=== PATIENT | male | born 1955 | race Caucasian/White ===

== ENCOUNTER 2021-04-30 09:35 | Emergency (ER) | payer BC, OTHER ==
[2021-04-30 10:01] VITALS: BP 151/92; PULSE 77; TEMP 98.1; BMI 33.0
[2021-04-30] MEDS ORDERED: ACETAMINOPHEN 325 MG TABLET (FP) PO ONE (10:57)
[2021-04-30 11:42] LABS: EPI CELLS 3 /uL (0-25.1); HYALINE CASTS 0 /uL (0-3.1); URINE APPEARANCE CLEAR; URINE BACTERIA 3 /uL (0-1359); URINE BILIRUBIN NEGATIVE (NEGATIVE); URINE COLOR YELLOW; URINE GLUCOSE (UA) TRACE (NEGATIVE); URINE KETONE NEGATIVE (NEGATIVE); URINE LEUK ESTERASE NEGATIVE (NEGATIVE); URINE NITRITE NEGATIVE (NEGATIVE); URINE PROTEIN 3+ (NEGATIVE); URINE RBC 3 /uL (0-23.9); URINE UROBILINOGEN 0.2 mg/dL (0.2-1.0); URINE WBC 1 /uL (0-25.8)
== END 2021-04-30 13:00 | disposition home or self-care (01) ==
LOC: JER 09:35
DX: N50.3 Cyst of epididymis (principal)
CPT/HCPCS: 76870-TC; 81003; 87086; 99284-25

== ENCOUNTER 2023-06-06 10:13 | Inpatient (IN) | payer BC ==
[2023-06-06 11:09] LABS: HEMATOCRIT 40.4 % (35.4-49); HEMOGLOBIN 13.2 GM/dL (11.7-16.9); MCH 30.4 pg (25.7-33.7); MCHC 32.6 g/dl (32.0-35.9); MEAN CELL VOLUME 93.1 fl (80-96); MEAN PLT VOLUME 7.2 fl (7.5-11.1); PLATELET COUNT 138 10^3/uL (134-434); RBC 4.33 M/mm3 (4.00-5.60); RDW 13.7 % (11.9-15.9); WHITE BLOOD COUNT 8.6 K/mm3 (4.0-10.0)
[2023-06-06] MEDS ORDERED: ASPIRIN 325 MG TABLET ONE (11:19)
[2023-06-06] MEDS: ASPIRIN 325 MG TABLET PO ONE (11:26)
[2023-06-06 11:34] LABS: ALBUMIN 3.5 g/dl (3.4-5.0)
[2023-06-06 11:35] LABS: BLOOD UREA NITROGEN 22.6 mg/dL (7-18); MAGNESIUM 1.8 mg/dL (1.8-2.4)
[2023-06-06 11:37] LABS: CREATININE 1.7 mg/dL (0.55-1.3)
[2023-06-06 11:39] LABS: BILIRUBIN,TOTAL 0.5 mg/dL (0.2-1); TOT PROT 7.2 g/dl (6.4-8.2)
[2023-06-06 11:59] LABS: INR 1.01 (0.83-1.09); PROTHROMBIN TIME (PATIENT) 11.4 SEC (9.7-13.0)
[2023-06-06 12:02] LABS: ACTIVATED PTT 27.3 SECONDS (25.2-36.5)
[2023-06-06] MEDS ORDERED: MAG HYDROX/AL HYDROX/SIMETH 30 ML UNIT-DOSE CUP ONE (13:36)
[2023-06-06] MEDS ORDERED: FAMOTIDINE 20 MG/50 ML IVPB 20 MG/50 ML MG IVPB ONE (13:36)
[2023-06-06] MEDS: MAG HYDROX/AL HYDROX/SIMETH 30 ML UNIT-DOSE CUP PO ONE (13:44)
[2023-06-06] MEDS: FAMOTIDINE 20 MG/50 ML IVPB 20 MG/50 ML MG IVPB ONE (13:44)
[2023-06-06] MEDS: ROSUVASTATIN CA 20 MG TABLET PO SCH (22:19)
[2023-06-06] MEDS: MYCOPHENOLATE MOFETIL 500 MG TABLET PO SCH (22:20)
[2023-06-07] MEDS: glipiZIDE-XL 10 MG TAB.ER.24 (FP) PO SCH (06:40)
[2023-06-07 08:15] LABS: BASO % 0.4 % (0-2.0); HEMATOCRIT 40.7 % (35.4-49); HEMOGLOBIN 13.6 GM/dL (11.7-16.9); LYMPH % 5.1 % (8-40); MCH 30.8 pg (25.7-33.7); MCHC 33.4 g/dl (32.0-35.9); MEAN CELL VOLUME 92.1 fl (80-96); MEAN PLT VOLUME 7.6 fl (7.5-11.1); MONO % 5.4 % (3.8-10.2); NEUT % 89.1 % (42.8-82.8); PLATELET COUNT 124 10^3/uL (134-434); RBC 4.42 M/mm3 (4.00-5.60); WHITE BLOOD COUNT 10.2 K/mm3 (4.0-10.0)
[2023-06-07 08:41] LABS: POTASSIUM 4.2 mmol/L (3.5-5.1)
[2023-06-07 08:57] LABS: CALCIUM 8.6 mg/dL (8.5-10.1)
[2023-06-07 08:58] LABS: ALBUMIN 3.1 g/dl (3.4-5.0); BLOOD UREA NITROGEN 26.6 mg/dL (7-18)
[2023-06-07 09:01] LABS: CREATININE 1.9 mg/dL (0.55-1.3)
[2023-06-07 09:02] LABS: BILIRUBIN,TOTAL 0.6 mg/dL (0.2-1); TOT PROT 6.8 g/dl (6.4-8.2)
[2023-06-07] MEDS: ASPIRIN COATED 81 MG TABLET.EC PO SCH (09:41)
[2023-06-07] MEDS: ENOXAPARIN NA (PORCINE) 40 MG/0.4 ML DISP.SYRIN SQ SCH (09:41)
[2023-06-07] MEDS: LISINOPRIL 20 MG TABLET PO SCH (09:42)
[2023-06-07] MEDS: PANTOPRAZOLE 40 MG TABLET PO SCH (09:42)
[2023-06-07] MEDS: ACETAMINOPHEN 325 MG TABLET (FP) PO PRN (11:53)
[2023-06-07] MEDS: INSULIN ASPART SLIDING SCALE (NOVOLOG) 1 VIAL SQ SCH (16:54)
[2023-06-07] MEDS: SODIUM CHLORIDE 1,000 ML IV SCH (17:02)
[2023-06-07 18:08] LABS: EPI CELLS 18 /uL (0-25.1); HYALINE CASTS 23 /uL (0-3.1); PH,URINE 5.5 (5.0-8.0); URINE APPEARANCE CLOUDY; URINE BACTERIA >9,000 /uL (0-1359); URINE BILIRUBIN NEGATIVE (NEGATIVE); URINE COLOR YELLOW; URINE GLUCOSE (UA) 3+ (NEGATIVE); URINE KETONE NEGATIVE (NEGATIVE); URINE LEUK ESTERASE NEGATIVE (NEGATIVE); URINE NITRITE NEGATIVE (NEGATIVE); URINE PROTEIN 4+ (NEGATIVE); URINE UROBILINOGEN 0.2 mg/dL (0.2-1.0)
[2023-06-07 19:09] LABS: URINE RBC 26.5 /uL (0-23.9)
[2023-06-07] MEDS: ATORVASTATIN CA 20 MG TABLET (FP) PO SCH (21:19)
[2023-06-08 07:17] LABS: POTASSIUM 4.5 mmol/L (3.5-5.1)
[2023-06-08 07:25] LABS: ALBUMIN 2.8 g/dl (3.4-5.0); BLOOD UREA NITROGEN 31.2 mg/dL (7-18)
[2023-06-08 07:30] LABS: BILIRUBIN,TOTAL 0.7 mg/dL (0.2-1); TOT PROT 6.6 g/dl (6.4-8.2)
[2023-06-08 07:32] LABS: BASO % 0.5 % (0-2.0); HEMATOCRIT 43.1 % (35.4-49); LYMPH % 8.1 % (8-40); MCH 30.4 pg (25.7-33.7); MCHC 32.4 g/dl (32.0-35.9); MEAN CELL VOLUME 93.8 fl (80-96); MONO % 6.4 % (3.8-10.2); PLATELET COUNT 94 10^3/uL (134-434); RBC 4.59 M/mm3 (4.00-5.60); RDW 13.7 % (11.9-15.9); WHITE BLOOD COUNT 7.5 K/mm3 (4.0-10.0)
[2023-06-08] MEDS: amLODIPine BESYLATE 10 MG TABLET (FP) PO SCH (09:42)
[2023-06-08] MEDS: CEFTRIAXONE 1 GM in DEXTROSE 5%-WATER - 50 ML IVPB SCH (13:52)
[2023-06-08] MEDS ORDERED: AMOX TR/POT CLAV 875MG/125MG TABLETS (FP) PO SCH (17:30)
[2023-06-08] MEDS ORDERED: INSULIN (NOVOLOG) ASPART 100 UNITS/ML 10ML VIAL ONE (21:43)
[2023-06-09] MEDS: MEROPENEM 1 GM in DEXTROSE 5%-WATER 100 ML IVPB SCH (13:58)
[2023-06-09] MEDS ORDERED: INSULIN (NOVOLOG) ASPART 100 UNITS/ML 10ML VIAL ONE (21:48)
[2023-06-10 07:26] LABS: BASO % 0.7 % (0-2.0); HEMATOCRIT 37.9 % (35.4-49); HEMOGLOBIN 12.5 GM/dL (11.7-16.9); LYMPH % 16.4 % (8-40); MCH 30.4 pg (25.7-33.7); MEAN CELL VOLUME 92.2 fl (80-96); MEAN PLT VOLUME 7.9 fl (7.5-11.1); MONO % 13.1 % (3.8-10.2); NEUT % 68.8 % (42.8-82.8); PLATELET COUNT 101 10^3/uL (134-434); RBC 4.11 M/mm3 (4.00-5.60); RDW 13.7 % (11.9-15.9); WHITE BLOOD COUNT 4.5 K/mm3 (4.0-10.0)
[2023-06-10 07:36] LABS: POTASSIUM 4.2 mmol/L (3.5-5.1)
[2023-06-10 07:53] LABS: ALBUMIN 2.4 g/dl (3.4-5.0); CALCIUM 8.1 mg/dL (8.5-10.1)
[2023-06-10 07:54] LABS: BLOOD UREA NITROGEN 28.9 mg/dL (7-18)
[2023-06-10 07:56] LABS: CREATININE 1.6 mg/dL (0.55-1.3)
[2023-06-10 07:58] LABS: BILIRUBIN,TOTAL 0.5 mg/dL (0.2-1); TOT PROT 6.1 g/dl (6.4-8.2)
[2023-06-10] MEDS ORDERED: INSULIN (NOVOLOG) ASPART 100 UNITS/ML 10ML VIAL ONE (21:28)
[2023-06-11] MEDS: ERTAPENEM SODIUM 1 GM in SODIUM CHLORIDE 50 ML IVPB SCH (12:22)
[2023-06-11 15:04] VITALS: BMI 32.9
[2023-06-12 07:24] LABS: HEMATOCRIT 36.5 % (35.4-49); HEMOGLOBIN 12.1 GM/dL (11.7-16.9); MCH 30.4 pg (25.7-33.7); MCHC 33.3 g/dl (32.0-35.9); MEAN CELL VOLUME 91.1 fl (80-96); PLATELET COUNT 122 10^3/uL (134-434); RDW 13.8 % (11.9-15.9); WHITE BLOOD COUNT 5.5 K/mm3 (4.0-10.0)
[2023-06-12 07:50] LABS: POTASSIUM 4.5 mmol/L (3.5-5.1)
[2023-06-12 07:57] LABS: CALCIUM 8.2 mg/dL (8.5-10.1)
[2023-06-12 07:58] LABS: ALBUMIN 2.5 g/dl (3.4-5.0); BLOOD UREA NITROGEN 25.7 mg/dL (7-18)
[2023-06-12 08:01] LABS: CREATININE 1.4 mg/dL (0.55-1.3)
[2023-06-12 08:02] LABS: BILIRUBIN,TOTAL 0.3 mg/dL (0.2-1); TOT PROT 5.9 g/dl (6.4-8.2)
[2023-06-12 09:36] LABS: ANISOCYTOSIS 1+; MACROCYTOSIS 0
[2023-06-12 09:43] VITALS: RESP 18
[2023-06-12 15:33] VITALS: BP 134/69; PULSE 62; TEMP 98.4
== END 2023-06-12 18:20 | disposition home health service (06) | DRG 309 ==
LOC: JER 10:13 → JERBED 14:15 → J4W 19:05 → OBSVTOIN 22:03 → J4W 06-09 19:17
PROVIDERS: ADMIT Internal Medicine; ATTEND Internal Medicine
DX: I45.2 Bifascicular block (principal); N17.9 Acute kidney failure, unspecified; N39.0 Urinary tract infection, site not specified; E78.5 Hyperlipidemia, unspecified; I12.9 Hypertensive chronic kidney disease with stage 1 through stage 4 chronic kidney disease, or unspecified chronic kidney disease; E11.22 Type 2 diabetes mellitus with diabetic chronic kidney disease; N18.9 Chronic kidney disease, unspecified; E11.21 Type 2 diabetes mellitus with diabetic nephropathy; B96.20 Unspecified Escherichia coli [E. coli] as the cause of diseases classified elsewhere; I44.0 Atrioventricular block, first degree; R50.9 Fever, unspecified
CPT/HCPCS: 0241U-QW; 36415; 36569; 71045-TC-FY; 80053; 80180; 81003; 82550; 82553; 82962; 83036; 83690; 83735; 83880; 84484; 85025; 85610; 85730; 87040; 87086; 87186; 93005; 93010; 93306-TC; 99285-25; G0378; J7517

== ENCOUNTER 2023-06-13 14:30 | Day surgery (SDC) | payer BC ==
[2023-06-13] MEDS: ERTAPENEM SODIUM 1 GM in SODIUM CHLORIDE 50 ML IVPB ONE (15:38)
[2023-06-13 16:39] VITALS: BP 138/70; PULSE 80; RESP 18; TEMP 98.1
== END 2023-06-13 15:45 | disposition home or self-care (01) ==
LOC: FINFUSION 14:30 → FM/S 14:36 → FINFUSION 15:45
PROVIDERS: ATTEND Internal Medicine Infectious Disease
DX: N39.0 Urinary tract infection, site not specified (principal); Z16.12 Extended spectrum beta lactamase (ESBL) resistance
CPT/HCPCS: 96365

== ENCOUNTER 2023-06-14 13:17 | Day surgery (SDC) | payer BC ==
[2023-06-14] MEDS: ERTAPENEM SODIUM 1 GM in SODIUM CHLORIDE 50 ML IVPB SCH (13:45)
[2023-06-14 16:06] VITALS: BP 120/75; PULSE 78; RESP 18; TEMP 98.6
== END 2023-06-14 14:35 | disposition home or self-care (01) ==
LOC: FM/S 13:17 → FINFUSION 13:17
PROVIDERS: ATTEND Internal Medicine Infectious Disease
DX: N39.0 Urinary tract infection, site not specified (principal); Z16.12 Extended spectrum beta lactamase (ESBL) resistance
CPT/HCPCS: 96365

== ENCOUNTER 2023-06-15 13:37 | Day surgery (SDC) | payer BC ==
[2023-06-15] MEDS: ERTAPENEM SODIUM 1 GM in SODIUM CHLORIDE 50 ML IVPB SCH (14:06)
[2023-06-15 14:14] VITALS: TEMP 98.3
[2023-06-15 14:48] VITALS: BP 137/81; PULSE 68; RESP 17
== END 2023-06-15 14:42 | disposition home or self-care (01) ==
LOC: FINFUSION 13:37 → FM/S 13:40 → FINFUSION 14:42
PROVIDERS: ATTEND Internal Medicine Infectious Disease
DX: N39.0 Urinary tract infection, site not specified (principal); Z16.12 Extended spectrum beta lactamase (ESBL) resistance
CPT/HCPCS: 96365

== ENCOUNTER 2023-06-16 14:33 | Day surgery (SDC) | payer BC ==
[2023-06-16] MEDS: ERTAPENEM SODIUM 1 GM in SODIUM CHLORIDE 50 ML IVPB ONE (15:00)
[2023-06-16 15:24] VITALS: BP 128/70; PULSE 80; RESP 16; TEMP 98.1
== END 2023-06-16 15:38 | disposition home or self-care (01) ==
LOC: FINFUSION 14:33 → FM/S 14:36 → FINFUSION 15:38
PROVIDERS: ATTEND Internal Medicine Infectious Disease
DX: N39.0 Urinary tract infection, site not specified (principal); Z16.12 Extended spectrum beta lactamase (ESBL) resistance
CPT/HCPCS: 96365

== ENCOUNTER 2023-06-17 14:18 | Day surgery (SDC) | payer BC ==
[2023-06-17] MEDS: ERTAPENEM SODIUM 1 GM in SODIUM CHLORIDE 50 ML IVPB ONE (14:45)
[2023-06-17 15:13] VITALS: BP 125/86; PULSE 82; RESP 16; TEMP 98.1
== END 2023-06-17 15:23 | disposition home or self-care (01) ==
LOC: FINFUSION 14:18 → FM/S 14:19 → FINFUSION 15:23
PROVIDERS: ATTEND Internal Medicine Infectious Disease
DX: N39.0 Urinary tract infection, site not specified (principal); Z16.12 Extended spectrum beta lactamase (ESBL) resistance
CPT/HCPCS: 96365

== ENCOUNTER 2023-06-18 14:47 | Day surgery (SDC) | payer BC ==
[2023-06-18] MEDS: ERTAPENEM SODIUM 1 GM in DEXTROSE 5%-WATER - 50 ML IVPB ONE (15:14)
[2023-06-18 16:08] VITALS: BP 128/73; PULSE 75; RESP 16; TEMP 98.9
== END 2023-06-18 16:08 | disposition home or self-care (01) ==
LOC: FINFUSION 14:47 → FM/S 14:48 → FINFUSION 16:08
PROVIDERS: ATTEND Internal Medicine Infectious Disease
DX: N39.0 Urinary tract infection, site not specified (principal); Z16.12 Extended spectrum beta lactamase (ESBL) resistance
CPT/HCPCS: 96365

== ENCOUNTER 2023-06-19 14:43 | Day surgery (SDC) | payer BC ==
[2023-06-19] MEDS: ERTAPENEM SODIUM 1 GM in SODIUM CHLORIDE 50 ML IVPB ONE (14:55)
[2023-06-19 15:56] VITALS: BP 128/76; PULSE 75; RESP 16; TEMP 98.5
== END 2023-06-19 15:47 | disposition home or self-care (01) ==
LOC: FM/S 14:43 → FINFUSION 14:43
PROVIDERS: ATTEND Internal Medicine Infectious Disease
DX: N39.0 Urinary tract infection, site not specified (principal); Z16.12 Extended spectrum beta lactamase (ESBL) resistance
CPT/HCPCS: 96365

== ENCOUNTER 2023-06-20 14:08 | Day surgery (SDC) | payer BC ==
[2023-06-20] MEDS: ERTAPENEM SODIUM 1 GM in SODIUM CHLORIDE 50 ML IVPB ONE (14:24)
[2023-06-20 14:33] VITALS: RESP 16; TEMP 98
[2023-06-20 15:01] VITALS: BP 134/56; PULSE 86
== END 2023-06-20 15:01 | disposition home or self-care (01) ==
LOC: FM/S 14:08 → FINFUSION 14:08
PROVIDERS: ATTEND Internal Medicine Infectious Disease
DX: N39.0 Urinary tract infection, site not specified (principal); Z16.12 Extended spectrum beta lactamase (ESBL) resistance
CPT/HCPCS: 96365; 96367

== ENCOUNTER 2023-06-21 13:30 | Day surgery (SDC) | payer BC ==
[2023-06-21] MEDS: ERTAPENEM SODIUM 1 GM in SODIUM CHLORIDE 50 ML IVPB SCH (14:11)
[2023-06-21 14:27] VITALS: BP 124/85; PULSE 72; RESP 18; TEMP 98.6
== END 2023-06-21 15:16 | disposition home or self-care (01) ==
LOC: FINFUSION 13:30 → FM/S 13:31 → FINFUSION 15:16
PROVIDERS: ATTEND Internal Medicine Infectious Disease
DX: N39.0 Urinary tract infection, site not specified (principal); Z16.12 Extended spectrum beta lactamase (ESBL) resistance
CPT/HCPCS: 96365